=== PATIENT | male | born 1955 | race Caucasian/White ===

== ENCOUNTER 2016-08-18 12:17 | Day surgery (SDC) | payer OTHER ==
[2016-08-13 12:25] VITALS: BMI 25.1
[~2016-08-18 12:17] MED LIST: LACTATED RINGERS 1,000 ML IV SCH
[2016-08-18 12:34] VITALS: RESP 16; TEMP 98.1
[2016-08-18] MEDS ORDERED: LIDOCAINE 1% 20 ML VIAL (10MG/ML) FOR IV START INTRADERMA ONE (12:37)
[2016-08-18] MEDS ORDERED: fentaNYL (PF) 50 MCG/ML 2 ML AMP ONE (12:46)
[2016-08-18] MEDS ORDERED: PROPOFOL 10 MG/ML 20 ML VIAL IV ONE (12:46)
[2016-08-18] MEDS ORDERED: MIDAZOLAM 2 MG/2 ML VIAL ONE (12:46)
[2016-08-18 14:03] VITALS: BP 113/82; PULSE 63
--- NOTE | 2016-08-23 20:04 | P.PCN ---
Date of Procedure: 08/18/16 Procedure(s) Performed: Procedure: 1. Esophagogastroduodenoscopy and biopsy. 2. Total colonoscopy. Preoperative diagnosis: 1. Dysphagia. 2. History of polyps. Postoperative diagnosis: 1. Hiatal hernia and distal esophagitis mostly limited to the area of the GE junction. 2. Mild gastritis. 3. Colon diverticulosis. Brief clinical history: The patient is a 61-year old male who is scheduled for these evaluations because of history of dysphagia and for screening colonoscopy because of history of polyps. Last EGD and prior colonoscopy was in January 2008 when he had a sigmoid tubular adenoma removed, and his last colonoscopy was in March 2011. Procedure: With the patient on his left lateral decubitus position and after informed consent and adequate sedation, I passed the Olympus-GIF 160 video upper endoscope through the cricopharyngeus down the esophagus. GE junction was around 40 cm from the incisors and there was a sliding hiatal hernia measuring between 1 and 2 cm. The distal esophagus showed broad, short erosions terminating at the level of the GE junction consistent with LA grade B distal esophagitis. There were no strictures or Hoang's esophagus. The endoscope was then passed into the stomach which was insufflated with air and inspected in detail including the retroflex view in the cardia. There was some mottling and erythema in the antrum but no ulcers or erosions. Pyloric channel , duodenal bulb, post bulbar area and descending duodenum appeared essentially within normal limits with the exception of minimal erythema. I obtained multiple biopsies from the duodenum and antrum before the endoscope was withdrawn then I proceeded with the colonoscopy. Perianal area did not show any fissures or fistulas. There were no masses felt on digital rectal examination. The Olympus CFQ 160L video colonoscope was then inserted in the rectum in the usual fashion and advanced to the cecum. There were several diverticular orifices seen scattered in the sigmoid and few on the right side and around the hepatic flexure with no evidence of acute diverticulitis or strictures the mucosa appeared healthy. No polyps or tumors were seen. I retroflexed the endoscope in the rectum before the endoscope was withdrawn. The patient tolerated the procedure well. Plan: The patient was reassured. Discussed dietary and antireflux measures. For the short and intermediate term, I recommended continued acid suppressive therapy. Further plans can then be made regarding his dysphagia based on his symptoms after the healing of his esophagitis. As far as his screening colonoscopy, I recommended repeat exam in 5 years. He will follow up with you as planned.
== END 2016-08-18 14:35 | disposition home or self-care (01) ==
LOC: ORWHC2ENDO 12:17
DX: Z12.11 Encounter for screening for malignant neoplasm of colon (principal); Z86.010 Personal history of colon polyps; K29.50 Unspecified chronic gastritis without bleeding; K21.0 Gastro-esophageal reflux disease with esophagitis; Z79.899 Other long term (current) drug therapy; Z91.040 Latex allergy status; Z91.09 Other allergy status, other than to drugs and biological substances
CPT/HCPCS: 88305; 88342; 43239; J2250; J3010; J2704; G0105

== ENCOUNTER 2017-10-21 06:27 | Day surgery (SDC) | payer OTHER ==
[2017-10-15 11:11] VITALS: BMI 24.3
[~2017-10-21 06:27] MED LIST changes: +DEXAMETHASONE SOD PHOSPHATE 10 MG/ML 1 ML VIAL IV ONE; +HEPARIN SODIUM,PORCINE 5,000 UNIT/ML 1 ML VIAL SQ ONE; -LACTATED RINGERS 1,000 ML IV SCH; +LIDOCAINE 1% 20 ML VIAL (10MG/ML) FOR IV START INTRADERMA PRN; +MIDAZOLAM 2 MG/2 ML VIAL IV PRN; +SCOPOLAMINE 1.5MG/72HR PATCH TRANSDERM ONE; +fentaNYL (PF) 50 MCG/ML 2 ML AMP IV PRN
[2017-10-21] MEDS: LACTATED RINGERS 1,000 ML IV SCH (07:17)
[2017-10-21] MEDS ORDERED: ONDANSETRON 4 MG/2 ML VIAL IVP ONE (07:18)
--- NOTE | 2017-10-21 07:49 | P.GSHP ---
History of Present Illness H&P Date: 10/21/17 Chief Complaint: Right inguinal hernia, umbilical hernia This is a 62-year-old male who presents today for laparoscopic robotic-assisted repair of umbilical hernia and right inguinal hernia. Patient has developed pain and intermittent mass in the right groin. Past Medical History Past Medical History: No Reported History Additional Past Medical History / Comment(s): INGUINAL AND UMBILICAL HERNIA, seasonal allergies History of Any Multi-Drug Resistant Organisms: None Reported Past Surgical History: No Surgical Hx Reported Additional Past Surgical History / Comment(s): colonoscopy Past Anesthesia/Blood Transfusion Reactions: No Reported Reaction Smoking Status: Never smoker - Past Family History Brother(s) Family Medical History: Cancer Additional Family Medical History / Comment(s): 2 BROTHERS Medications and Allergies Home Medications Medication Instructions Recorded Confirmed Type EPINEPHrine (Auto Inject) [Epipen] 0.3 mg IM ONCE PRN 08/13/16 10/21/17 History Loratadine [Claritin] 10 mg PO DAILY 08/13/16 10/21/17 History Ranitidine HCl [Zantac] 150 mg PO BID 08/13/16 10/21/17 History Albuterol Inhaler [Ventolin Hfa 1 - 2 puff INHALATION Q6HR PRN #1 03/06/1710/21 Rx Inhaler] inhaler Fluticasone Nasal Allen [Flonase 2 spr EA NOSTRIL DAILY 10/15/17 10/21/17 History Nasal Allen] Allergies Allergy/AdvReac Type Severity Reaction Status Date / Time latex Allergy Anaphylaxis Verified 10/21/17 06:41 seasonal AdvReac Unknown Uncoded 10/21/17 06:41 Surgical - Exam Vital Signs Temp Pulse Resp BP Pulse Ox 97.4 F L 74 16 170/104 94 L 10/21/17 06:49 10/21/17 06:49 10/21/17 06:49 10/21/17 06:49 10/21/17 06:49 - General well developed, no distress - Eyes PERRL - ENT normal pinna - Neck no masses - Respiratory normal expansion - Cardiovascular Rhythm: regular - Abdomen Abdomen: soft, non tender Hernia: inguinal (Reducible right inguinal hernia), umbilical (Reducible umbilical hernia) Assessment and Plan Assessment: Reducible right inguinal hernia and umbilical hernia. We'll perform laparoscopic robotic-assisted repair.
[2017-10-21] MEDS ORDERED: BUPIVACAINE (PF) 0.5% 30 ML VIAL SQ ONE ×2 (07:50→08:22)
[2017-10-21] MEDS: ceFAZolin IN SWFI 2 GM/20 ML SYRINGE IVP ONE ×2 (07:50→08:14)
[2017-10-21] MEDS ORDERED: LIDOCAINE 1% INJ 10MG/ML (20 ML MDV) ONE (07:53)
[2017-10-21] MEDS ORDERED: SUCCINYLCHOLINE CHLORIDE 100 MG/5 ML SYR IV ONE (07:53)
[2017-10-21] MEDS ORDERED: KETOROLAC 30 MG/ML 1 ML VIAL ONE (07:53)
[2017-10-21] MEDS ORDERED: PROPOFOL 10 MG/ML 20 ML VIAL IV ONE (07:53)
[2017-10-21] MEDS ORDERED: ROCURONIUM BROMIDE 10 MG/ML 10 ML VIAL IV ONE (07:53)
[2017-10-21] MEDS ORDERED: MIDAZOLAM 2 MG/2 ML VIAL ONE (07:53)
[2017-10-21] MEDS ORDERED: ePHEDrine SULFATE/0.9% NACL/PF 50 MG/5 ML SYRINGE IV ONE (07:53)
[2017-10-21] MEDS ORDERED: fentaNYL (PF) 50 MCG/ML 2 ML AMP ONE (07:53)
[2017-10-21] MEDS ORDERED: GLYCOPYRROLATE 0.2 MG/ML 2 ML VIAL ONE (07:53)
[2017-10-21] MEDS ORDERED: NEOSTIGMINE 1 MG/ML 10 ML VIAL ONE (07:53)
[2017-10-21] MEDS ORDERED: LIDOCAINE 1%-EPI 1:100,000 30 ML VIAL SQ ONE ×2 (08:25→08:30)
[2017-10-21 09:55] VITALS: TEMP 98
--- NOTE | 2017-10-21 10:16 | P.OP ---
Date of Procedure: 10/21/17 Preoperative Diagnosis: Right inguinal hernia Umbilical hernia Postoperative Diagnosis: Bilateral inguinal hernia Umbilical hernia Cord lipomas Procedure(s) Performed: Laparoscopic robotic system repair of bilateral inguinal hernia Laparoscopic robotic repair of umbilical hernia Excision of bilateral cord lipomas Anesthesia: EVER Surgeon: Amadeo Staley Estimated Blood Loss (ml): 5 Pathology: other (Cord lipoma) Condition: stable Disposition: PACU Description of Procedure: The patient's placed on the operating table in the supine position. The patient received general anesthesia. The patient's abdomen was prepped and draped in usual sterile fashion. The skin was anesthetized 1% local Xylocaine at the incision sites. Using an 11 blade a skin incision was made at the umbilicus. The patient had an umbilical hernia. The fascia was grasped with a Chi and then the peritoneal cavity was entered with the Veress needle. Position of the Veress needle was confirmed with a positive drop test. After adequate insufflation a 5 mm trocar was placed into the peritoneal cavity. The Laparoscope was placed the peritoneal cavity. And a robotic 8 mm trocar was placed in the right lateral position and then another 8 mm robotic trochars placed in the left lateral position. The original 5 mm trocar was exchanged for a 12 mm trocar. The patient was placed in reverse Trendelenburg and then the patient was docked to the robot. Next the peritoneum over top of the right inguinal hernia was incised and then using blunt and sharp dissection and electrocautery the hernia sac was dissected free from the floor of the inguinal canal. The hernia sac was completely reduced into the peritoneal cavity. A lipoma was dissected off the cord and excised. And then using the Pro grill prep cook mesh the hernia was repaired. The peritoneum was then sutured with 20V lock suture. Next the peritoneum over top of the left inguinal hernia was incised and then using blunt and sharp dissection and electrocautery the hernia sac was dissected free from the floor of the inguinal canal. The hernia sac was completely reduced into the peritoneal cavity. A lipoma was dissected off the cord and excised. And then using the Pro grill prep cook mesh the hernia was repaired. The peritoneum was then sutured with 20V lock suture. The patient was then undocked the robot. The needle was withdrawn from the peritoneal cavity. The lipomas were withdrawn and sent to pathology.. The umbilical hernia site was closed with 0 Ethibond suture. The skin was closed interrupted 3-0 Monocryl suture. Dermabond dressing was applied. Patient was sent to recovery in stable condition.
[2017-10-21] MEDS ORDERED: HYDROcodone/APAP 7.5-325MG 1 EACH TAB PO ONE (11:15)
[2017-10-21 11:31] VITALS: RESP 16
[2017-10-21 12:00] VITALS: BP 126/74; PULSE 79
== END 2017-10-21 12:37 | disposition home or self-care (01) ==
LOC: OR 06:27
PROVIDERS: ATTEND Surgery
DX: K40.20 Bilateral inguinal hernia, without obstruction or gangrene, not specified as recurrent (principal); K42.9 Umbilical hernia without obstruction or gangrene; D17.6 Benign lipomatous neoplasm of spermatic cord; K21.9 Gastro-esophageal reflux disease without esophagitis; Z79.899 Other long term (current) drug therapy; Z79.51 Long term (current) use of inhaled steroids; Z91.040 Latex allergy status; Z91.09 Other allergy status, other than to drugs and biological substances
CPT/HCPCS: 49650; 49652; S2900; 88304

== ENCOUNTER → 2018-08-13 | Outpatient (CLI) | payer OTHER ==
[2018-08-13 07:54] LABS: Appearance,Urine Clear (Clear); Bilirubin,Urine Negative (Negative); Blood,Urine Negative (Negative); Color,Urine Yellow; Glucose,Urine (UA) Negative (Negative); Ketones,Urine Negative (Negative); Leukocyte Esterase,Urine Negative (Negative); Nitrite,Urine Negative (Negative); Protein,Urine Negative (Negative); Specific Gravity,Urine 1.022 (1.001-1.035); Urobilinogen,Urine <2.0 mg/dL (<2.0)
[2018-08-13 07:55] LABS: HCT 47.1 % (39.0-53.0); HGB 16.2 gm/dL (13.0-17.5); MCH 31.1 pg (25.0-35.0); MCHC 34.4 g/dL (31.0-37.0); MCV 90.4 fL (80.0-100.0); RBC 5.21 m/uL (4.30-5.90); RDW 13.9 % (11.5-15.5); WBC 4.7 k/uL (3.8-10.6)
[2018-08-13 07:56] LABS: Mean Platelet Volume 8.1; Platelet Count 187 k/uL (150-450)
[2018-08-13 16:04] LABS: Albumin 4.3 g/dL (3.80-4.90); Albumin/Globulin Ratio 1.87 (1.60-3.17); Anion Gap 8.2 mmol/L (4.00-12.00); Calcium 9.2 mg/dL (8.7-10.3); Carbon Dioxide 26.8 mmol/L (21.6-31.8); Globulin 2.3 g/dL (1.6-3.3); Potassium 4.1 mmol/L (3.5-5.5); Total Bilirubin 0.9 mg/dL (0.2-1.2); Total Protein 6.6 g/dL (6.2-8.2)
== END | disposition home or self-care (01) ==
LOC: LABWHC1 07:11
PROVIDERS: ATTEND Internal Medicine
DX: E78.5 Hyperlipidemia, unspecified (principal); N40.0 Benign prostatic hyperplasia without lower urinary tract symptoms; R13.14 Dysphagia, pharyngoesophageal phase; Z12.5 Encounter for screening for malignant neoplasm of prostate
CPT/HCPCS: 80061; 80053; 85027; 81003; 36415; G0103

== ENCOUNTER → 2021-12-02 | Outpatient (CLI) | payer MEDICARE, OTHER ==
--- NOTE | 2021-12-02 16:28 | FL ---
EXAMINATION TYPE: FL barium swallow DATE OF EXAM: 12/02/2021 COMPARISON: None HISTORY: Dysphagia TECHNIQUE: A double air contrast esophagram study is performed. FINDINGS: Fluoroscopy time: 18 seconds. Images: 139 Esophagus dilates to a normal caliber and has a normal contour to the gastroesophageal junction. Aditya roesophageal junction opens to a normal caliber. A few mild tertiary contractions are evident during this examination. No suspicious intraluminal or extramural defect is evident. There is complete strip ping of the esophageal bolus in the horizontal drinking position. In the horizontal drinking position Schatzki's ring is identified with a small hiatal hernia. No reflux was identified. IMPRESSIONS: 1. Mild Presbyesophagus. 2. Small self reducing sliding type hiatal hernia.
== END | disposition home or self-care (01) ==
LOC: RADUSWWP 10:47
PROVIDERS: ATTEND Internal Medicine
DX: K44.9 Diaphragmatic hernia without obstruction or gangrene (principal); K22.89 Other specified disease of esophagus
CPT/HCPCS: 74220

== ENCOUNTER 2023-01-28 10:06 | Day surgery (SDC) | payer MEDICARE, OTHER ==
[2023-01-26 10:09] VITALS: BMI 26.8
[~2023-01-28 10:06] MED LIST changes: -DEXAMETHASONE SOD PHOSPHATE 10 MG/ML 1 ML VIAL IV ONE; -HEPARIN SODIUM,PORCINE 5,000 UNIT/ML 1 ML VIAL SQ ONE; +LACTATED RINGERS 1,000 ML IV SCH; +LIDOCAINE 1% (10MG/ML) FOR IV START INTRADERMA PRN; -LIDOCAINE 1% 20 ML VIAL (10MG/ML) FOR IV START INTRADERMA PRN; -MIDAZOLAM 2 MG/2 ML VIAL IV PRN; -SCOPOLAMINE 1.5MG/72HR PATCH TRANSDERM ONE; -fentaNYL (PF) 50 MCG/ML 2 ML AMP IV PRN
[2023-01-28] MEDS ORDERED: LIDOCAINE 2% INJ 20 MG/ML (2 ML VIAL) ONE (11:11)
[2023-01-28] MEDS ORDERED: PROPOFOL 10 MG/ML 20 ML VIAL IV ONE (11:11)
--- NOTE | 2023-01-28 11:25 | P.PCN ---
Date of Procedure: 01/28/23 Procedure(s) Performed: BRIEF HISTORY: Patient is a 67-year-old pleasant white male scheduled for an elective colonoscopy as a part of screening for colon cancer. PROCEDURE PERFORMED: Colonoscopy. PREOPERATIVE DIAGNOSIS: Screening for colon cancer. IV sedation per Anesthesia. PROCEDURE: After informed consent was obtained, the patient, was brought into the endoscopy unit. IV sedation was administered by Anesthesia under continuous monitoring. Digital rectal examination was normal. Initially the Olympus CF-160 flexible video colonoscope was then inserted in the rectum, gradually advanced into the cecum without any difficulty. Careful examination was performed as the scope was gradually being withdrawn. Ileocecal valve and the appendiceal orifice were visualized and appeared normal. Prep was fair. Mucosa of the cecum, ascending colon, transverse colon, descending colon, sigmoid colon, and rectum appeared normal. Scattered sigmoid diverticulosis. Retroflexion was performed in the rectum and no lesions were seen. The patient tolerated the procedure well. IMPRESSION: Normal-appearing colon from rectum to cecum with no other colorectal neoplasia. Scattered sigmoid diverticula RECOMMENDATIONS: Findings of this examination were discussed with the patient as well as his family. He was advised to have a repeat screening colonoscopy in 10 years..
[2023-01-28 13:15] VITALS: BP 109/70; PULSE 63; RESP 15; TEMP 97.9
== END 2023-01-28 12:02 | disposition home or self-care (01) ==
LOC: ORWHC2ENDO 10:06
PROVIDERS: ATTEND Internal Medicine Gastroenterology
DX: Z12.11 Encounter for screening for malignant neoplasm of colon (principal); K57.30 Diverticulosis of large intestine without perforation or abscess without bleeding; I10 Essential (primary) hypertension; E78.5 Hyperlipidemia, unspecified; J30.2 Other seasonal allergic rhinitis; Z91.040 Latex allergy status; K21.9 Gastro-esophageal reflux disease without esophagitis; K44.9 Diaphragmatic hernia without obstruction or gangrene; Z79.83 Long term (current) use of bisphosphonates; Z79.899 Other long term (current) drug therapy
CPT/HCPCS: J2704; J2001; G0121

== ENCOUNTER 2023-05-21 07:36 | Emergency (ER) | payer MEDICARE, OTHER ==
[2023-05-21 08:03] VITALS: RESP 18; TEMP 97.9
[2023-05-21] MEDS ORDERED: SODIUM CHLORIDE 0.9% 1,000 ML IV ONE (08:37)
[2023-05-21] MEDS ORDERED: SODIUM CHLORIDE 0.9% 500 ML 500 ML IV ONE (08:37)
[2023-05-21] MEDS ORDERED: KETOROLAC 15 MG/ML 1 ML VIAL IVP STA (08:38)
[2023-05-21] MEDS ORDERED: HYDROmorphone 0.5 MG/0.5 ML SYRINGE IVP STA (08:38)
--- NOTE | 2023-05-21 08:40 | ED ---
General Adult HPI - General Source: patient, RN notes reviewed, old records reviewed Mode of arrival: ambulatory Limitations: no limitations <Max Jacobo - Last Filed: 05/21/23 15:11> <Juan Luis Mishra - Last Filed: 05/21/23 18:38> - General Chief complaint: Chest Pain Stated complaint: Chest Pain Time Seen by Provider: 05/21/23 08:00 - History of Present Illness Initial comments: This is a 68-year-old male who presents emergency Department with a ten-day history of intermittent right upper quadrant abdominal pain. Patient states it's getting progressively worse and he has not been eating or drinking much because of the pain. Patient denies any fever chills. Patient states the pain radiates to his back. Patient states his bowel movements have been decreased but of course he is not eating as much either. Patient denies any difficulty breathing or chest pain. Patient denies any dysuria hematuria urinary frequency. (Max Jacobo) - Related Data Home Medications Medication Instructions Recorded Confirmed Loratadine [Claritin] 10 mg PO DAILY 08/13/16 05/21/23 Atorvastatin [Lipitor] 10 mg PO DAILY 01/26/23 05/21/23 Omeprazole 20 mg PO DAILY PRN 01/26/23 05/21/23 amLODIPine [Norvasc] 2.5 mg PO DAILY 01/26/23 05/21/23 Allergies Allergy/AdvReac Type Severity Reaction Status Date / Time latex Allergy Anaphylaxis Verified 05/21/23 08:14 seasonal AdvReac Unknown Uncoded 05/21/23 07:40 Review of Systems ROS Other: All systems not noted in ROS Statement are negative. <Max Jacobo - Last Filed: 05/21/23 15:11> ROS Other: All systems not noted in ROS Statement are negative. <Juan Luis Mishra - Last Filed: 05/21/23 18:38> ROS Statement: Those systems with pertinent positive or pertinent negative responses have been documented in the HPI. Past Medical History Past Medical History: No Reported History, GERD/Reflux, Hyperlipidemia, Hypertension Additional Past Medical History / Comment(s): INGUINAL AND UMBILICAL HERNIA, seasonal allergies History of Any Multi-Drug Resistant Organisms: None Reported Past Surgical History: Hernia Repair Additional Past Surgical History / Comment(s): colonoscopy, egd Past Anesthesia/Blood Transfusion Reactions: No Reported Reaction Past Psychological History: No Psychological Hx Reported Smoking Status: Never smoker Past Alcohol Use History: Rare - Past Family History Brother(s) Family Medical History: Cancer Additional Family Medical History / Comment(s): 2 BROTHERS kidney esophageal <DonnellMax - Last Filed: 05/21/23 15:11> General Exam Limitations: no limitations <DonnellMax - Last Filed: 05/21/23 15:11> - General Exam Comments Initial Comments: GENERAL: Patient is well-developed and well-nourished. Patient is nontoxic and well- hydrated and is in mild distress. ENT: Neck is soft and supple. No significant lymphadenopathy is noted. Oropharynx is clear. Moist mucous membranes. Neck has full range of motion without eliciting any pain. EYES: The sclera were anicteric and conjunctiva were pink and moist. Extraocular movements were intact and pupils were equal round and reactive to light. Eyelids were unremarkable. PULMONARY: Unlabored respirations. Good breath sounds bilaterally. No audible rales rhonchi or wheezing was noted. CARDIOVASCULAR: There is a regular rate and rhythm without any murmurs gallops or rubs. ABDOMEN: Minimal right upper quadrant abdominal pain. SKIN: Skin is clear with no lesions or rashes and otherwise unremarkable. NEUROLOGIC: Patient is alert and oriented x3. Cranial nerves II through XII are grossly intact. Motor and sensory are also intact. Normal speech, volume and content. Symmetrical smile. MUSCULOSKELETAL: Normal extremities with adequate strength and full range of motion. LYMPHATICS: No significant lymphadenopathy is noted PSYCHIATRIC: Normal psychiatric evaluation. (Max Jacobo) Course Vital Signs 05/21/23 05/21/23 05/21/23 07:38 10:06 12:59 Temperature 97.9 F Pulse Rate 69 72 70 Respiratory 18 18 18 Rate Blood Pressure 142/79 127/74 116/66 O2 Sat by Pulse 99 95 Oximetry 05/21/23 14:44 Temperature Pulse Rate 67 Respiratory 18 Rate Blood Pressure 126/76 O2 Sat by Pulse 94 L Oximetry Medical Decision Making - Lab Data Result diagrams: 05/21/23 08:40 05/21/23 08:40 <Max Jacobo - Last Filed: 05/21/23 15:11> - Lab Data Result diagrams: 05/21/23 08:40 05/21/23 08:40 <Juan Luis Mishra - Last Filed: 05/21/23 18:38> - Medical Decision Making EKG is interpreted by myself. EKG shows sinus rhythm at 65 bpm WA interval 266 dresses 101 QT interval 390 QTC is 410. Patient's EKG shows no ST segment elevation or depression. Was pt. sent in by a medical professional or institution (, [facility], [facility], urgent care, hospital, or [facility]...) When possible be specific @ -No Did you speak to anyone other than the patient for history (EMS, parent, family, police, friend...)? What history was obtained from this source @ -No Did you review nursing and triage notes (agree or disagree)? Why? @ -I reviewed and agree with nursing and triage notes Were old charts reviewed (outside hosp., previous admission, EMS record, old EKG, old radiological studies, urgent care reports/EKG's, [facility] records)? Report findings @ -I reviewed prior charts in prior lab work on this patient Differential Diagnosis (chest pain, altered mental status, abdominal pain women, abdominal pain men, vaginal bleeding, weakness, fever, dyspnea, syncope, headache, dizziness, GI bleed, back pain, seizure, CVA, palpatations, mental health, musculoskeletal)? @ -Differential Abdominal Pain Men: Appendicitis, cholecystitis, diverticulosis, ischemic bowel, pancreatitis, he patitis, UTI, gastroenteritis, AAA, incarcerated hernia, bowel obstruction, constipation, inflammatory bowel, hepatitis, peptic ulcer disease, splenic infarction, perforated viscus, testicular torsion, this is not meant to be an all-inclusive list EKG interpreted by me (3pts min.). @ -As above X-rays interpreted by me (1pt min.). @ -None done CT interpreted by me (1pt min.). @ -None done U/S interpreted by me (1pt. min.). @ -Ultrasound showed a thickened gallbladder wall as well as a dilated common bile duct and cholelithiasis What testing was considered but not performed or refused? (CT, X-rays, U/S, labs)? Why? @ -None What meds were considered but not given or refused? Why? @ -None Did you discuss the management of the patient with other professionals (professionals i.e. , [facility], [facility], lab, RT, psych nurse, social sciences chair, stitcher operator, teacher, policy officer, case briefer)? Give summary @ -I spoke with Dr. Iesha Julian wanted to MRCP so that was ordered Was smoking cessation discussed for >3mins.? @ -No Was critical care preformed (if so, how long)? @ -No Were there social determinants of health that impacted care today? How? (Homelessness, low income, unemployed, alcoholism, drug addiction, transportation, low edu. Level, literacy, decrease access to med. care, assisted, rehab)? @ -No Was there de-escalation of care discussed even if they declined (Discuss DNR or withdrawal of care, Hospice)? DNR status @ -No What co-morbidities impacted this encounter? (DM, HTN, Smoking, COPD, CAD, Cancer, CVA, ARF, Chemo, Hep., AIDS, mental health diagnosis, sleep apnea, morbid obesity)? @ -None Was patient admitted / discharged? Hospital course, mention meds given and route, prescriptions, significant lab abnormalities, going to OR and other pertinent info. @ -Patient received antibiotics and pain medication while in the emergency department. MRCP was ordered and Dr. cherry will be taking over the care of this patient at 3 PM (Max Jacobo) The patient was passed off to myself from previous shift. He is having pain in his right upper quadrant. Ultrasound showed gallstones and gallbladder wall thickening. Liver function studies are elevated. He was sent for a MRCP. There is a long delay in patient care due to this being completed and radiologist delay. Case is eventually discussed with the radiologist and the radiologist notes a 4 mm distal ductal stone with a dilated common bile duct at 1 cm. They also note gallstones and gallbladder wall thickening. The report relates that a patient does have choledocholithiasis and he will need to be transferred to a hospital that has gastroenterology coverage for possible ERCP. Patient and are agreeable for transfer to [facility]. Case is discussed with ER physician Dr. Tovar who is agreeable to transfer. Appropriate transfer paperwork is completed. Patient will be transferred via EMS in the near future. (Juan Luis Mishra) - Lab Data Lab Results 05/21/23 05/21/23 05/21/23 Range/Units 08:40 08:40 08:40 WBC 12.5 H (3.8-10.6) k/uL RBC 4.89 (4.30-5.90) m/uL Hgb 15.4 (13.0-17.5) gm/dL Hct 45.7 (39.0-53.0) % MCV 93.6 (80.0-100.0) fL MCH 31.5 (25.0-35.0) pg MCHC 33.7 (31.0-37.0) g/dL RDW 12.5 (11.5-15.5) % Plt Count 237 (150-450) k/uL MPV 8.8 Neutrophils % 82 % Lymphocytes % 8 % Monocytes % 7 % Eosinophils % 2 % Basophils % 0 % Neutrophils # 10.2 H (1.3-7.7) k/uL Lymphocytes # 1.0 (1.0-4.8) k/uL Monocytes # 0.8 (0-1.0) k/uL Eosinophils # 0.2 (0-0.7) k/uL Basophils # 0.0 (0-0.2) k/uL Sodium 142 (137-145) mmol/L Potassium 4.0 (3.5-5.1) mmol/L Chloride 103 (98-107) mmol/L Carbon Dioxide 26 (22-30) mmol/L Anion Gap 13 mmol/L BUN 21 H (9-20) mg/dL Creatinine 1.32 H (0.66-1.25) mg/dL Est GFR (CKD-EPI)AfAm 64 (>60 ml/min/1.73 sqM) Est GFR (CKD-EPI)NonAf 55 (>60 ml/min/1.73 sqM) Glucose 127 H (74-99) mg/dL Plasma Lactic Acid Jan 1.5 (0.7-2.0) mmol/L Calcium 9.2 (8.4-10.2) mg/dL Total Bilirubin 2.7 H (0.2-1.3) mg/dL AST 120 H (17-59) U/L ALT 53 H (4-49) U/L Alkaline Phosphatase 198 H (38-126) U/L Troponin I (0.000-0.034) ng/mL Total Protein 7.5 (6.3-8.2) g/dL Albumin 4.0 (3.5-5.0) g/dL Amylase 60 (30-110) U/L Lipase 112 (23-300) U/L 05/21/23 Range/Units 08:40 WBC (3.8-10.6) k/uL RBC (4.30-5.90) m/uL Hgb (13.0-17.5) gm/dL Hct (39.0-53.0) % MCV (80.0-100.0) fL MCH (25.0-35.0) pg MCHC (31.0-37.0) g/dL RDW (11.5-15.5) % Plt Count (150-450) k/uL MPV Neutrophils % % Lymphocytes % % Monocytes % % Eosinophils % % Basophils % % Neutrophils # (1.3-7.7) k/uL Lymphocytes # (1.0-4.8) k/uL Monocytes # (0-1.0) k/uL Eosinophils # (0-0.7) k/uL Basophils # (0-0.2) k/uL Sodium (137-145) mmol/L Potassium (3.5-5.1) mmol/L Chloride (98-107) mmol/L Carbon Dioxide (22-30) mmol/L Anion Gap mmol/L BUN (9-20) mg/dL Creatinine (0.66-1.25) mg/dL Est GFR (CKD-EPI)AfAm (>60 ml/min/1.73 sqM) Est GFR (CKD-EPI)NonAf (>60 ml/min/1.73 sqM) Glucose (74-99) mg/dL Plasma Lactic Acid Jan (0.7-2.0) mmol/L Calcium (8.4-10.2) mg/dL Total Bilirubin (0.2-1.3) mg/dL AST (17-59) U/L ALT (4-49) U/L Alkaline Phosphatase (38-126) U/L Troponin I <0.012 (0.000-0.034) ng/mL Total Protein (6.3-8.2) g/dL Albumin (3.5-5.0) g/dL Amylase (30-110) U/L Lipase (23-300) U/L Disposition <Max Jacobo - Last Filed: 05/21/23 15:11> Is patient prescribed a controlled substance at d/c from ED?: No Time of Disposition: 18:38 - Out of Hospital Transfer - Req. Specs Out of Hospital Transfer - Requested Specifics: Other Emergency Center ([facility]) <Juan Luis Mishra - Last Filed: 05/21/23 18:38> Clinical Impression: Abdominal pain, Gallstones, Cholecystitis, Elevated LFTs, Choledocholithiasis Disposition: OTHER INSTITUTION NOT DEFINED Condition: Fair
[2023-05-21 08:47] LABS: Basophils % (A) 0 %; Eosinophils # (A) 0.2 k/uL (0-0.7); Eosinophils % (A) 2 %; HCT 45.7 % (39.0-53.0); HGB 15.4 gm/dL (13.0-17.5); Lymphocytes % (A) 8 %; MCH 31.5 pg (25.0-35.0); MCHC 33.7 g/dL (31.0-37.0); MCV 93.6 fL (80.0-100.0); Mean Platelet Volume 8.8; Monocytes # (A) 0.8 k/uL (0-1.0); Monocytes % (A) 7 %; Neutrophils # (A) 10.2 k/uL (1.3-7.7); Neutrophils % (A) 82 %; Platelet Count 237 k/uL (150-450); RBC 4.89 m/uL (4.30-5.90); RDW 12.5 % (11.5-15.5); WBC 12.5 k/uL (3.8-10.6)
[2023-05-21 08:59] LABS: ALT 53 U/L (4-49); AST 120 U/L (17-59); African American GFR (CKD) 64 (>60 ml/min/1.73 sqM); Alkaline Phosphatase 198 U/L (38-126); Amylase 60 U/L (30-110); Anion Gap 13 mmol/L; Blood Urea Nitrogen 21 mg/dL (9-20); Calcium 9.2 mg/dL (8.4-10.2); Carbon Dioxide 26 mmol/L (22-30); Chloride 103 mmol/L (98-107); Glucose 127 mg/dL (74-99); Lipase 112 U/L (23-300); Non-African American GFR(CKD) 55 (>60 ml/min/1.73 sqM); Sodium 142 mmol/L (137-145); Total Bilirubin 2.7 mg/dL (0.2-1.3); Total Protein 7.5 g/dL (6.3-8.2)
--- NOTE | 2023-05-21 10:52 | US ---
EXAMINATION TYPE: US gallbladder DATE OF EXAM: 05/21/2023 COMPARISON: NONE CLINICAL INDICATION: Male, 68 years old with history of Right upper quadrant abdominal pain; RUQ pain x 1 week TECHNIQUE: Multiple sonographic images of the right upper quadrant are obtained. FINDINGS: EXAM MEASUREMENTS: Liver Length: 16..6 cm Gallbladder Wall: 0.4 cm CBD: 1.2 cm Right Kidney: 9.5 x 5.3 x 4.7 cm Pancreas: visualized portions wnl, limited by overlying bowel gas Liver: wnl Gallbladder: cholelithiasis, there may be debris within the gallbladder. Gallbladder wall is thicken ed. No pericholecystic fluid is identified. Evidence for sonographic Null's sign: no CBD: dilated at 1.2 cm. Normal less than 0.7 cm. Right Kidney: wnl IMPRESSION: 1. Cholelithiasis. There is thickening of the gallbladder wall. Clinical consideration for acute chol ecystitis is recommended. 2. Dilated common bile duct 3. Borderline hepatomegaly.
[2023-05-21] MEDS ORDERED: PIPERACILLIN-TAZOBACTAM 3.375 GM in SODIUM CHLORIDE 0.9% 100 ML IVPB STA (11:46)
--- NOTE | 2023-05-21 17:52 | MR ---
EXAMINATION TYPE: MR MRCP DATE OF EXAM: 05/21/2023 COMPARISON: Ultrasound 05/21/2023 HISTORY: 68-year-old male assess for choledocholithiasis, Abdomen pain Technique: Multiplanar, multisequence images of the abdomen were acquired without contrast. Highly T2 weighted images of the pancreatic or biliary system for MRCP. Rotational 3-D reconstructions generat ed on a dedicated independent workstation. FINDINGS: Heart upper limits of normal in size without pericardial effusion. No pleural effusion. There is a small hiatal hernia. The liver is mildly enlarged at 18.1 cm. No significant fatty infiltration on opposed phase T1-weight ed imaging. Tiny 5 mm cyst at the right hepatic dome. There is mild to moderate diffuse gallbladder wall thickening though without alexis hydropic change. S cattered calculi are present within the gallbladder lumen. Bile duct is dilated up to 1.2 cm proximally and 1.0 cm distally along with mild intrahepatic biliary ductal dilatation as well. A tiny 4 mm distal duct stone is present near the ampulla. A few renal cortical cysts measuring up to 1.4 cm. A few bilateral parapelvic cysts measuring up to 1 .9 cm. No evidence of hydronephrosis. Adrenal glands, spleen, and pancreas show no gross abnormality by noncontrast MRI. No dilated small bowel. No upper abdominal lymphadenopathy or gross bowel abnormality is seen. IMPRESSION: 1. Choledocholithiasis with a small 4 mm stone at the distal bile duct near the ampulla. There is ass ociated intrahepatic and extrahepatic biliary ductal dilatation. The bile duct is dilated up to 1.2 c m. 2. Mild to moderate diffuse gallbladder wall thickening with scattered small stones. There is no michael k hydropic gallbladder change. Consider chronic (rather than acute) cholecystitis, though both are in the differential. 3. Small hiatal hernia. Findings discussed with Dr. Mishra in the ER over the phone at 5:40 PM.
[2023-05-21] MEDS ORDERED: PIPERACILLIN-TAZOBACTAM 3.375 GM in SODIUM CHLORIDE 0.9% 100 ML IVPB SCH (20:00)
[2023-05-21] MEDS ORDERED: HYDROmorphone 0.5 MG/0.5 ML SYRINGE IVP PRN (20:26)
[2023-05-21 20:47] VITALS: BP 172/85; PULSE 69
[2023-05-22] MEDS ORDERED: PIPERACILLIN-TAZOBACTAM 3.375 GM in SODIUM CHLORIDE 0.9% 100 ML IVPB SCH ×2
== END 2023-05-21 21:45 | disposition other institution (70) ==
LOC: EC 07:36
DX: K80.10 Calculus of gallbladder with chronic cholecystitis without obstruction (principal); R94.5 Abnormal results of liver function studies; K21.9 Gastro-esophageal reflux disease without esophagitis; E78.5 Hyperlipidemia, unspecified; I10 Essential (primary) hypertension; Z79.899 Other long term (current) drug therapy; Z91.040 Latex allergy status; Z88.8 Allergy status to other drugs, medicaments and biological substances
CPT/HCPCS: 36415; 93005; 80053; 82150; 83605; 83690; 84484; 85025; 87040; 76705; 74181; 99285; 96365; 96375 ×2; 96376; 96361; J2543; J1885; J1170

== ENCOUNTER → 2023-05-29 | Outpatient (CLI) | payer MEDICARE, OTHER ==
[2023-05-29 18:46] LABS: Albumin/Globulin Ratio 1.25 Ratio (1.60-3.17); Bilirubin, Conjugated 0.29 mg/dL (0.20-0.40); Bilirubin,Unconjugated 0.71 mg/dL (0.20-1.00); Globulin 3.2 g/dL (1.6-3.3); Total Protein 7.2 g/dL (6.2-8.2)
== END | disposition home or self-care (01) ==
LOC: LABWHC1 09:36
PROVIDERS: ATTEND Surgery
DX: K80.80 Other cholelithiasis without obstruction (principal); K80.30 Calculus of bile duct with cholangitis, unspecified, without obstruction
CPT/HCPCS: 36415; 80076; 83690

== ENCOUNTER → 2023-07-30 | Outpatient (CLI) | payer MEDICARE, OTHER ==
[2023-07-30 16:08] LABS: Albumin 4.2 g/dL (3.8-4.9); Albumin/Globulin Ratio 1.56 Ratio (1.60-3.17); Bilirubin, Conjugated 0.26 mg/dL (0.20-0.40); Bilirubin,Unconjugated 0.74 mg/dL (0.20-1.00); Globulin 2.7 g/dL (1.6-3.3); Total Protein 6.9 g/dL (6.2-8.2)
== END | disposition home or self-care (01) ==
LOC: LABWHC1 09:22
PROVIDERS: ATTEND Surgery
DX: K81.9 Cholecystitis, unspecified (principal)
CPT/HCPCS: 36415; 80076; 83690